=== PATIENT | male | born 1975 ===

== ENCOUNTER 2025-04-11 09:20 | Outpatient (REF) | payer OTHER, SELFPAY ==
--- NOTE | ~2025-04-11 | XR_ITS ---
EXAMINATION: XR SHOULDER, RIGHT CLINICAL INFORMATION: M25.511 - Pain in right shoulder COMPARISON: None available. TECHNIQUE: AP external rotation, Grashey, scapular Y, and axillary views of the right shoulder. FINDINGS: No acute cortical disruption or malalignment. No lytic or blastic lesions. No subcutaneous emphysema. XR/XR shoulder RT min 2V IMPRESSION: No acute fracture or dislocation. Normal x-ray. Electronically signed by: Willie Randall MD 04/11/2025 12:16 PM EDT
--- OUTSIDE RECORDS SUMMARY | 2025-04-12 09:38 | XMS_ITS | Clinical Summary ---
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 Overview (10/11/2024): Symptoms [...] Surgery Date Site/Laterality Comments ESOPHAGOGASTRODUODENOSCOPY 10/29/08 PROCEDURE: [place] EGD TRANSORAL BIOPSY SINGLE/MULTIPLE; COMMENT: R/o Granda's esophagus-bx:chronic active inflammation (no BE), Nl stomach-bx:nl(no H PYlori), duodenitis-bx:nl OTHER SURGICAL HISTORY 09/19/2012 PROCEDURE: [place] ESOPHAGOSCOPY FLEXIBLE TRANSORAL DIAGNOSTIC; COMMENT: normal Medical [...] l Result * HIV Screening (08/07/2010) Pathologist [facility] HIV Screening abstracted us Historical Provider HEALTH MAINTENANCE Final Result from Last 3 Months or Most Recently Relevant to Health Maintenance Care Teams Fabricator Assembler [employer] Products Relationship Specialty Start Date End Date Luis Melton MD PCP - General Internal Medicine 08/17/21
== END 2025-04-11 09:21 | disposition home or self-care (01) ==
LOC: HO.HOSX 09:20
PROVIDERS: Visit Provider Physician Assistant
DX: M25.511 Pain in right shoulder (principal); S46.911A Strain of unspecified muscle, fascia and tendon at shoulder and upper arm level, right arm, initial encounter
CPT/HCPCS: 73030; 99202

== ENCOUNTER 2025-04-11 11:31 | Outpatient (AMB) | payer OTHER, SELFPAY ==
--- NOTE | 2025-04-11 11:32 | A.OFFVIS_ITS ---
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 Patient reports he was lifting a heavy box of food when he had a sudden onset of pain in the right shoulder. His job sent him to be evaluated at [facility], however patient did not like the care and was referred to [facility]. Currently he has been feeling better, states no pain recently. No limitation on his ROM. He mentions a neck surgery last year and unsure if this was contributing to his pain. He is unsure if this is related. Currently he is working with restrictions. 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 He was seen at the [facility] and then referred to our office for another opinion. He states since the date of injury he has improved symptoms and does not experience any pain or limitations with activity. States he has been working light duty since the date of injury. 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 He has full range of motion in all planes. 5/5 rotator cuff strength. No tenderness to palpation over the AC joint or proximal biceps tendon. Neurovascularly intact. Results Reviewed Results Reviewed: X-rays of the right shoulder obtained in the office today and reviewed by me show well-preserved joint space and no acute or chronic abnormalities. Assessment & Plan Assessment & Plan (1) Right shoulder strain: Code(s): S46.911A - Strain of unspecified muscle, fascia and tendon at shoulder and upper arm level, right arm, initial encounter Category: Medical Plan: Patient is doing well since his injury and has no limitations. I encouraged him to continue activities as tolerated. He can return to work on 04/13 without restrictions. If symptoms arise or there is any concerns he can contact our office otherwise follow up as needed. Orders: Orders XR shoulder RT min 2V Today M25.511 - Pain in right shoulder Coding Level of Care Code New Pt Level 3 (53601) Complex EM visit Add On G2211 Diagnoses Right shoulder strain S46.911A
[2025-04-11 12:02] VITALS: BMI 27.3
--- OUTSIDE RECORDS SUMMARY | 2025-04-11 13:02 | XMS_ITS | Clinical Summary ---
Author Organization [facility] Address [address] [place] [address] Care Team Providers Care Solvent Process Extractor Operator Name Role Phone Luis Melton MD Primary Care Provider [phone] Allergies No known active allergies Medications valACYclovir (VALTREX) 500 mg tablet Take 1 tablet (500 mg total) by mouth 1 (one) time each day. 2 Active albuterol HFA (PROAIR HFA ; PROVENTIL HFA ; VENTOLIN HFA) 90 mcg/actuation inhaler Inhale 2 Puffs into the lungs 4 times daily as needed for Cough, Wheezing or Shortness of Breath. 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 Prednisone started. (Dr. Oates) Dysphagia 09/19/2012 Microcytosis 09/19/2012 Overview (10/11/2024): Probable heterozygous thalassemia. Tinea inguinalis 06/17/2010 Herpes genitalis in men 06/06/2009 Iron deficiency anemia 09/02/2008 Immunizations Name Administration Dates Next Due Influenza Quadravalent, MDCK , 0.5ml, preservative free (Flucelvax) 6mo and older 10/15/2020 Moderna SARS-CoV-2 COVID-19, mRNA, LNP-S, preservative free 08/28/2021 Pneumococcal polysaccharide 23 valent (Pneumovax 23) 2yo and older 10/06/2016 Tdap Tetanus diptheria acell ular pertussis (Boostrix; Adacel) 7yo and older 07/10/2014 Surgical History Surgery Date Site/Laterality Comments ESOPHAGOGASTRODUODENOSCOPY 10/29/08 PROCEDURE: [place] EGD TRANSORAL BIOPSY SINGLE/MULTIPLE; COMMENT: R/o Granda's esophagus-bx:chronic active inflammation (no BE), Nl stomach-bx:nl(no H PYlori), duodenitis-bx:nl OTHER SURGICAL HISTORY 09/19/2012 PROCEDURE: [place] ESOPHAGOSCOPY FLEXIBLE TRANSORAL DIAGNOSTIC; COMMENT: normal Medical History Medical History Date Comments Vitiligo DX:Vitiligo Microcytosis 09/19/2012 DX:Microcytosis Sarcoidosis of lung (CMS/HCC V24) 08/14/2015 DX:Sarcoidosis of lung (HCC); COMMENT: Symptoms April 2015: abnormal CXR, 07/16 transbronchial lung biopsy showed granulomata. Prednisone started. (Dr. Oates) Social History Tobacco Use Types Packs/Day Years Used Date Smoking Tobacco: Never Smokeless Tobacco: Never Alcohol Use Standard Drinks/Week Comments Yes 0 (1 standard drink = 0.6 oz pur e alcohol) Sex and Gender Information Value Date Recorded Sex Assigned at Not on file Legal Sex Male 2:18 PM EST Gender Identity Not on file Sexual Orientation Not on file Obstetrics History Plan of Treatment Health Maintenance Due Date Last Done Comments Hepatitis B Vaccines (1 of 3 - 19+ 3-dose series) 1995 Colorectal Cancer Screening: Colonoscopy 09/22/2022 Depression Screening 09/22/2022 Hepatitis C Screening 09/22/2022 Social Influencers of Health Screening 09/22/2022 Cholesterol Screening (Lipid Panel) 11/09/2023 11/09/2018 COVID-19 Vaccine ( - 2023-2 5 season) 2024 08/28/2021, 12/14/2020, 11/13/2020 DTaP,Tdap,and Td Vaccines (2 - Td or Tdap) 07/10/2024 07/10/2014 Influenza Vaccine (Season Ended) 2025 10/15/2020 HIV Screening Completed 08/07/2010 Pneumococcal Vaccine: Pediatrics (0 to 5 Years) and At-Risk Patients (6 to 64 Years) Aged Out 10/06/2016 No longer eligible b ased on patient's age to complete this topic HIB Vaccines Aged Out No longer eligi ble based on patient's age to complete this topic HPV Vaccines Aged Out No longer eligi ble based on patient's age to complete this topic Hepatitis A Vaccines Aged Out No long er eligible based on patient's age to complete this topic IPV Vaccines Aged Out No longer eligi ble based on patient's age to complete this topic MMR Vaccines Aged Out No longer eligi ble based on patient's age to complete this topic Meningococcal ACWY Vaccine Aged Out N o longer eligible based on patient's age to complete this topic Meningococcal B Vaccine Aged Out No l onger eligible based on patient's age to complete this topic RSV Immunization Patients Under 20 months Aged Out No longer eligible b ased on patient's age to complete this topic Varicella Vaccines Aged Out No longer eligible based on patient's age to complete this topic Procedures Procedure Name Priority Date/Time Associated Diagnosis Comments LIPID PANEL Routine 11/09/2018 HIV SCREENING Routine 08/07/2010 from Last 3 Months or Most Recently Relevant to Health Maintenance Results * (ABNORMAL) Lipid panel (11/09/2018) LDL/HDL Ratio 4 0 - 4 Triglycerides 147 0 - 150 mg/dL Cholesterol 193 0 - 200 mg/dL HDL 46 >=40 mg/dL LDL Cholesterol 118(A) 0 - 100 mg/dL Blood Venous blood specimen / Unknown Historical Provider LAB BLOOD ORDERABLES Ioana l Result * HIV Screening (08/07/2010) Pathologist [facility] HIV Screening abstracted us Historical Provider HEALTH MAINTENANCE Final Result from Last 3 Months or Most Recently Relevant to Health Maintenance Care Teams Solvent Process Extractor Operator Relationship Specialty Start Date End Date Luis Melton MD PCP - General Internal Medicine 08/17/21
== END 2025-04-11 12:11 | disposition home or self-care (01) ==
LOC: HO.HOS 11:31
PROVIDERS: Visit Provider Physician Assistant
DX: S46.911A Strain of unspecified muscle, fascia and tendon at shoulder and upper arm level, right arm, initial encounter (principal)
CPT/HCPCS: 99203; G2211

== ENCOUNTER → 2025-04-11 11:46 | Outpatient (BNV) | payer OTHER, SELFPAY | PROVIDERS: Visit Provider Radiology Diagnostic Radiology | DX: M25.511 Pain in right shoulder (principal) | CPT/HCPCS: 73030 ==